=== PATIENT | male | born 1955 ===

== ENCOUNTER 2023-04-21 12:48 | Emergency (ER) | payer SELFPAY ==
[2023-04-21] MEDS ORDERED: AMIODARONE HCL 150 MG/3 ML INJ IV ONE (12:49)
[2023-04-21] MEDS ORDERED: NA CHLORIDE 0.9% 1,000 ML IV ONE (12:49)
[2023-04-21] MEDS ORDERED: EPINEPHrine 1 MG/10 ML SYR IV ONE (12:49)
--- NOTE | 2023-04-21 13:20 | ER ---
Nurse's Notes [facility] Name: Shivam Marie Age: 67 yrs Sex: Male : 1955 Arrival Date: 04/21/2023 Time: 12:48 Bed 4 Private MD: Diagnosis: Cardiac arrest, cause unspecified Presentation: 04/21 12:44 Chief complaint: EMS states: [employer] Officer found unresponsive by homeowner supine on hb grass. On scene pt unresponsive, pulseless, diaphoretic and hot to the touch. CPR initiated at 1200. Initial rhythm VFIB, shocked x 2, epi x 4, asystole all other pulse checks. BGL 48, administered 25G D!0 to 18g LAC, NS 1L bolus administered to L humerus 18G JUAN R. ETT 7.5, 21 at the teeth. Jacky device continues, pt being bagged by EMS. 12:44 Method Of Arrival: EMS: [facility] hb 12:44 Acuity: CRIS 1 hb 12:45 Care prior to arrival: Assisted ventilation, Oral intubation, CPR via thumper performed hb by EMS was defibrillated and is still in progress Medication(s) given: Normal saline infusion, D!0. Compressions began prior to arrival. Historical: - Allergies: 12:45 Unable to obtain; hb - Home Meds: 12:45 Unable to obtain [Active]; hb - PMHx: 12:45 Unable to Obtain; hb - PSHx: 12:45 Unable to Obtain; hb - Immunization history:: Adult Immunizations unknown. - Social history:: Smoking status: unknown. - Family history:: not pertinent. - Hospitalizations: : No recent hospitalization is reported. Assessment: 12:49 CPR assessment: unresponsive, intubated, Ambu ventilation. hb 12:50 Cardiac rhythm is PEA. hb 12:52 Cardiac rhythm is asystole. hb 12:54 Reassessment: 18g RAC placed by Edwina SANCHEZ, labs drawn. hb 12:55 Cardiac rhythm is asystole. hb 12:57 Cardiac rhythm is asystole. hb 12:57 Reassessment: Pt asystole, decision to discontinue CPR and time of called by Dr. ronda Patterson. 13:49 Reassessment: Call placed to [employer], spoke with Melodie Sam, pt is a candidate for nj1 donation, no known next of kin, she will call for more information. 14:36 Reassessment: ROSA Terrence Watters exits room at this time, states body to go to [place] for view nj1 and toxicology. 14:54 Reassessment: [employer] on the phone requesting more information. Still no info on next nj1 of kin. Given Associate Professor information, they will follow up with the ROSA after body departure. ED Course: 12:51 Patient arrived in ED. hb 12:51 Jose Patterson MD is Private Physician. ec2 12:51 Jose Patterson MD is Attending Physician. ec2 13:01 [employer] called at the request of the [place] police district switchboard operator ashley Montes/ Associate Professor will be paged. 13:19 Jose Patterson MD is Pronouncing Provider. rn 13:24 Triage completed. hb Administered Medications: 12:49 Drug: amiodarone 150 mg IVP once Route: IVP; Site: left antecubital; hb 12:51 Drug: EPINEPHrine 0.1mg/mL 1:10,000 1 mg IVP once Route: IVP; Site: left antecubital; hb 12:51 Drug: Sodium Bicarbonate 1 amp IVP once; (50 mL); equals 50 mEq Route: IVP; Site: left hb antecubital; 12:53 Drug: EPINEPHrine 0.1mg/mL 1:10,000 1 mg IVP once Route: IVP; Site: left antecubital; hb 12:56 Drug: EPINEPHrine 0.1mg/mL 1:10,000 1 mg IVP once Route: IVP; Site: left antecubital; hb 12:56 Drug: Sodium Bicarbonate 1 amp IVP once; (50 mL); equals 50 mEq Route: IVP; Site: left hb antecubital; Outcome: 13:19 Discharge ordered by MD. rn 15:12 Patient left the ED. eb Signatures: Jose Patterson MD MD rn Baxter, Heather, RN RN Lali Ho Radha Maya RN RN nj1 Shon Arana MD MD ec2 Corrections: (The following items were deleted from the chart) 13:29 12:44 Chief complaint: EMS states: [employer] Officer found unresponsive by homeowner supine on grass. On scene pt unresponsive, diaphoretic and hot to the touch, CPR initiated at 1200, Initial rhythm VFIB, shocked x 2, epi x 4, asystole all other pulse checks. BGL 48, administered 25G D!0 to 18g LAC, NS 1L bolus administered to L humerus 18G JUAN R. ETT 7.5, 21 at the teeth. Jacky device continues, pt being bagged by EMS. hb
--- NOTE | 2023-04-21 13:20 | EDPHYS ---
Physician Documentation [facility] Name: Shivam Marie Age: 67 yrs Sex: Male : 1955 Arrival Date: 04/21/2023 Time: 12:48 Bed 4 Private MD: ED Physician Jose Patterson HPI: 04/21 13:13 This 67 yrs old Male presents to ER via Unassigned with complaints of CPR. rn 13:13 Preceding the arrest, the patient collapsed, was found down. The arrest occurred rn Outside in yard. Pre-hospital course: The arrest was not witnessed by others. Bystanders at the scene did not perform CPR. ACLS details: Initial rhythm was V-fib. The presenting rhythm is PEA. Airway: oral intubation, Medications given by EMS prior to arrival - Epinephrine IV x 2 doses, Defibrillated X 2, Response to therapy: continued arrest. It is unknown whether or not the patient has had similar symptoms in the past. EMS reports patient was found outside somebody's house. Was supposed to be working at the house, homeowner had seen them awake and alive then later found him collapsed on the ground. No apparent trauma. Nothing really found around patient. Initial seen rhythm was a coarse V-fib, shocked x 2 and given epinephrine without improvement. Has been asystole the entire time since then.. Historical: - Allergies: 12:45 Unable to obtain; hb - Home Meds: 12:45 Unable to obtain [Active]; hb - PMHx: 12:45 Unable to Obtain; hb - PSHx: 12:45 Unable to Obtain; hb - Immunization history:: Adult Immunizations unknown. - Social history:: Smoking status: unknown. - Family history:: not pertinent. - Hospitalizations: : No recent hospitalization is reported. ROS: 13:13 Unable to obtain ROS due to comatose state, rn Exam: 13:13 Constitutional: This is a well developed, well nourished patient who is GCS 3, rn intubated Head/Face: Normocephalic, atraumatic. Eyes: Pupils 6 mm unreactive Cardiovascular: No spontaneous cardiac activity. Positive femoral and carotid pulse with compressions Respiratory: Coarse bilateral breath sounds with bagging, no spontaneous breaths Neuro: GCS 3 intubated Procedures: 13:13 CPR: See CPR flow sheet. Initial patient assessment: unresponsive, intubated, pulses rn present w/ compressions, The presenting cardiac rhythm is PEA. the patient was intubated prior to arrival, Compressions: began prior to arrival. despite ED evaluation and treatment, the patient . CPR was stopped at 12:57. MDM: 12:58 Patient medically screened. rn 13:13 Differential diagnosis: arrythmia, cardiac arrest, respiratory arrest, traumatic rn injury. Data reviewed: vital signs, nurses notes. 13:17 ED course: Call time was about noon, almost 1 hour of ACLS protocol, patient intubated rn and shocked without any improvement. Time of at 1257.. 04/21 13:02 Order name: glucometer results - FOR PT WITH NO ID; Complete Time: 13:54 em1 Administered Medications: 12:49 Drug: amiodarone 150 mg IVP once Route: IVP; Site: left antecubital; hb 12:51 Drug: EPINEPHrine 0.1mg/mL 1:10,000 1 mg IVP once Route: IVP; Site: left antecubital; hb 12:51 Drug: Sodium Bicarbonate 1 amp IVP once; (50 mL); equals 50 mEq Route: IVP; Site: left hb antecubital; 12:53 Drug: EPINEPHrine 0.1mg/mL 1:10,000 1 mg IVP once Route: IVP; Site: left antecubital; hb 12:56 Drug: EPINEPHrine 0.1mg/mL 1:10,000 1 mg IVP once Route: IVP; Site: left antecubital; hb 12:56 Drug: Sodium Bicarbonate 1 amp IVP once; (50 mL); equals 50 mEq Route: IVP; Site: left hb antecubital; Disposition Summary: 04/21/23 13:20 Patient Notes: Location: [employer] Project Engineer(04/21/23 13:20) rn Pronouncing Physician: Jose Patterson rn Time of : 12:57 04/21/2023 rn Diagnosis - Cardiac arrest, cause unspecified(04/21/23 13:20) rn Signatures: Dispatcher [employer] EDMS Jose Patterson MD MD rn Baxter, Heather, RN RN hb Corrections: (The following items were deleted from the chart) 13:17 13:13 CPR: See CPR flow sheet. Initial patient assessment: rn rn 13:19 13: Home rn rn : new rn rn : are unchanged rn rn : Stable rn rn : Cardiac arrest, cause unspecified rn rn
== END 2023-04-21 15:12 | disposition expired ==
LOC: EDBD 12:48 → ER 12:48
DX: I46.9 Cardiac arrest, cause unspecified (principal)
CPT/HCPCS: 36415; 82947; 92950; 96374; 96375; 99291; J0171; J0282; J7030